=== PATIENT | female | born 1985 | race Two or more races ===

== ENCOUNTER 2016-12-05 17:09 | Emergency (ER) | payer BC ==
--- NOTE | 2016-12-09 10:17 | ER ---
ADMIT: 12/05/2016 RM/LOC: ER [facility] MR#: [id number] [id number] [place], [place] [id number] [address] [place] [address] Emergency Room Report SEX: F AGE: 31 : 1985 DATE: 12/05/2016 TIME: [address] Damon's T-sheet for complete H and P. HISTORY OF PRESENT ILLNESS: Briefly, I am following up on her labs. She came in with a fever, it has been going on for a day, not feeling well. He did the whole sepsis routine as she did not look like she felt very well. She was given about 1 L of normal saline while here. Zofran and morphine were titrated. We gave her a dose of Zosyn after blood cultures were obtained. Her chest x-ray was negative. EKG was normal. CBC normal except hemoglobin 11.5. Chemistries normal except CO2 of 20. Coags normal. UA showed 3+ leukocyte esterase, 116 white blood cells. negative. Lactate was 1, cardiac was negative. I had a long discussion with her, she is feeling much better. We are going to treat her as an outpatient. ASSESSMENT: 1. Acute pyelonephritis, treated with the first dose of Zosyn here. Sepsis pathway done in the ER. 2. Fever. 3. Dehydration. PLAN: Cipro 500 b.i.d. for 7 days. [place] 5, I gave her 15. I want her to see Dr. Amaya next week. Return if worse. Holland Grigsby MD/ timothy JOB #: [id number] CC: Trey Damon MD, Attending Physician Deja Amaya MD, Family Physician
== END 2016-12-05 20:15 | disposition home or self-care (01) ==
LOC: ER 17:09
DX: N10 Acute pyelonephritis (principal); E86.0 Dehydration; Z79.899 Other long term (current) drug therapy

== ENCOUNTER 2016-12-06 10:52 | Emergency (ER) | payer BC ==
--- NOTE | 2016-12-11 16:16 | ER ---
ADMIT: 12/06/2016 RM/LOC: ER [facility] MR#: [id number] [address] [id number] SAULO HERR [address] [place] [address] Emergency Room Report SEX: F AGE: 31 : 1985 DATE: 12/06/2016 ADDENDUM: CHIEF COMPLAINT: Positive blood culture. The patient was sent home yesterday with pyelonephritis. She was called this morning due to positive blood culture for E. coli. She did come back in, she actually says she is feeling a little bit better than she did yesterday. She was sent home with Cipro. COURSE IN THE EMERGENCY ROOM: I repeated the CBC, lactic acid, and procalcitonin. Procalcitonin is 0.57. Her CMP is normal except for potassium at 3.6. Her lactic acid is 1.2, and her CBC is normal with a white count of 6.1, and slightly low hemoglobin of 10.6. CLINICAL IMPRESSION: Pyelonephritis with positive blood culture of E. coli. I did speak with Dr. Amaya regarding this patient since she is feeling significantly better today. She only has low-grade fever. She is not vomiting, and feels though she is okay to go home at this time. She was given Rocephin 2 g IV here in the emergency room. I did give her instructions to return the ER if she develops worsening fever and vomiting. Otherwise, she is going to follow up with Dr. Amaya on Thursday. CATALINA Mcallister / Trey Damon MD / monicol JOB #: [id number] CC: Trey Damon MD, Attending Physician UNKNOWN, Family Physician
== END 2016-12-06 13:35 | disposition home or self-care (01) ==
LOC: ER 10:52
DX: N12 Tubulo-interstitial nephritis, not specified as acute or chronic (principal); R78.81 Bacteremia; B96.20 Unspecified Escherichia coli [E. coli] as the cause of diseases classified elsewhere; R50.9 Fever, unspecified